=== PATIENT | male | born 1985 | race Caucasian/White ===

== ENCOUNTER 2019-03-11 22:40 | Inpatient (IN) | payer BC ==
[~2019-03-11] VITALS: Ht 195.6 cm; Wt 81.8 kg
[2019-03-11 23:27] LABS: HEMOGLOBIN 13.8 g/dl (13.5-18.0); RED BLOOD COUNT 4.46 M/mm3 (4.20-5.60)
[2019-03-11 23:28] LABS: BASO % 0.3 % (0.0-2.0); EOS # 0.2 (0.0-0.7); EOS % 1.3 % (0-4.0); GRAN # 8.7 (1.4-6.5); GRAN % 68.4 % (42.2-75.2); HEMATOCRIT 39.6 % (42.0-52.0); LYMPH # 2.6 (1.2-3.4); LYMPH % 20.7 % (20.0-51.0); MEAN CELL VOLUME 89 fl (80.0-100.0); MEAN CORPUSCULAR HEMOGLOBIN 31 pg (27.0-31.0); MEAN CORPUSCULAR HGB CONC 35 g/dl (33.0-37.0); MEAN PLATELET VOLUME 9.7 fl (7.4-10.4); MONO # 1.1 (0.1-0.6); MONO % 8.8 % (1.7-9.3); PLATELET COUNT 218 K/mm3 (130-400)
[2019-03-11 23:36] LABS: ALBUMIN 4.5 gm/dL (3.5-5.0); BILIRUBIN,TOTAL 0.7 mg/dL (0.0-1.0); C-REACTIVE PROTEIN 4.8 mg/dL (0.0-0.9); CALCIUM 9.5 mg/dL (8.4-10.2); CREATININE, serum 0.95 (0.66-1.25); TOTAL PROTEIN 8.6 gm/dL (6.4-8.2)
[2019-03-12] VITALS (9 sets, daily range): BP systolic 104–126; BP diastolic 56–77; PULSE 75–86; TEMP 98.1–100
--- NOTE | 2019-03-12 02:30 | NUR ---
Patient arrived to floor via w/c and assist of ED RN. Mom at bedside. Patient c/o pain 9/10 in abdomen, with severe cramping and nausea. Prn pain medication and zofran given. Warm blanket given to place on abdomen for comfort. IVF started in left AC IV. Denies further needs at this time. Will continue to monitor.
--- NOTE | 2019-03-12 03:30 | NUR ---
Patient states, the morphine only helped slightly. Notified Dr. Barron d/t patient requesting more morphine. No orders to change pain medication at this time. Patient and Mom verbalized understanding that 4mg morphine cannot be given more frequently than Q2h. Will continue to monitor.
--- NOTE | 2019-03-12 04:39 | NUR ---
Patient in bed, sleeping. Appears comfortable. Mom at bedside, sleeping. Will continue to monitor.
--- NOTE | 2019-03-12 06:32 | NUR ---
Patient in bed, awake. States pain in abdomen is 8/10. Prn pain medication given per pt request. Denies further needs at this time. Will continue to monitor.
[2019-03-12 09:17] LABS: BASO % 0.4 % (0.0-2.0); EOS # 0.1 (0.0-0.7); EOS % 0.6 % (0-4.0); GRAN # 8.1 (1.4-6.5); GRAN % 71.9 % (42.2-75.2); HEMATOCRIT 37.6 % (42.0-52.0); HEMOGLOBIN 13.1 g/dl (13.5-18.0); LYMPH % 17.8 % (20.0-51.0); MEAN CELL VOLUME 89 fl (80.0-100.0); MEAN CORPUSCULAR HEMOGLOBIN 31 pg (27.0-31.0); MEAN CORPUSCULAR HGB CONC 35 g/dl (33.0-37.0); MEAN PLATELET VOLUME 9.9 fl (7.4-10.4); MONO % 8.9 % (1.7-9.3); PLATELET COUNT 186 K/mm3 (130-400); RED BLOOD COUNT 4.24 M/mm3 (4.20-5.60); REDCELL DISTRIBUTION WIDTH-CV 13.1 % (11.5-14.5)
[2019-03-12 09:23] LABS: CALCIUM 8.6 mg/dL (8.4-10.2); CREATININE, serum 0.76 (0.66-1.25)
--- NOTE | 2019-03-12 09:38 | NUR ---
Initial visit; Patient experiencing pain though thanked Shotgun Shell Loading Machine Operator for looking in on him and offering God's blessings.
--- NOTE | 2019-03-12 09:42 | NUR ---
PT STATED THIS AM THAT PAIN IS NOT WELL CONTROLLED WITH IV PAIN MEDS THAT WE HAVE ON BOARD. PROVIDED PT WITH HEAT PACK. WILL ASK PROVIDER IF ABLE TO TRY A DIFFERENT PAIN MED IF POSSIBLE
--- NOTE | 2019-03-12 10:45 | NUR ---
PT CONDITION WAS DISCUSSES WITH PROVIDER. PROPERTY VALUER ORDERED
--- NOTE | 2019-03-12 11:10 | NUR ---
FOUNDATION DRILL OPERATOR HELPER STARTED, 2 NURSE VARIFICATION DONE. FOUNDATION DRILL OPERATOR HELPER EDUCATION PROVIDED AND SIGNATURES OBTAINED. NO QUESTIONS VOICED AT THIS TIME.
--- NOTE | 2019-03-12 11:26 | NUR ---
Painting Supervisor attended clinical rounds with the team. Patient states he presented to the ER with severe stomach pain. SW met with the patient after rounds. Patient lives alone in [place]. Patient does not have a primary care physician and states he is not interested in setting up primary care at this time. Patient reports when he needs medications he gets them at [facility] in [place] with no difficulty. Patient is independent with ADLS and does not have DME. Patient does not have DPOA-HC, but states everything he has will go to his mom. Patient not interested in setting up DPOA-HC at this time. Patient plans to return home upon discharge. SW to continue to follow as needed.
--- NOTE | 2019-03-12 15:17 | NUR ---
PT STATED THAT PAIN IS NOW TOLERARABLE THEN IT WAS BEFORE. CASE WORK AIDE IS HELPING.
--- NOTE | 2019-03-12 19:35 | NUR ---
Initial shift assessment done- states abd pain, cramping pain 11/07- has CASINO CAGE SUPERVISOR morphine- instructed to use for pain control! states he will-- denies nausea, no SOB, VSS, temp 98.8- SCD.s on, IV fluids 150cc/hr to L/ac IV site, unstarstands he is NPO for bowel rest
[2019-03-13] VITALS (10 sets, daily range): BP systolic 118–127; BP diastolic 63–76; PULSE 75–95; TEMP 99.2–99.9
--- NOTE | 2019-03-13 05:21 | NUR ---
Quiet night- states PATIENT SERVICES TECHNICIAN Morphine is helping with pain control- states Pain is better than earlier in shift- Did void 700cc darkamber/orange urine during the night. IV fluids at 150cc/hr. No stools this shift- highest temp 100.0 at start of shift
[2019-03-13 07:33] LABS: BASO % 0.3 % (0.0-2.0); EOS # 0.1 (0.0-0.7); EOS % 0.8 % (0-4.0); GRAN # 8.5 (1.4-6.5); GRAN % 73.2 % (42.2-75.2); HEMOGLOBIN 12.3 g/dl (13.5-18.0); LYMPH % 16.8 % (20.0-51.0); MEAN CELL VOLUME 90 fl (80.0-100.0); MEAN CORPUSCULAR HEMOGLOBIN 32 pg (27.0-31.0); MEAN CORPUSCULAR HGB CONC 35 g/dl (33.0-37.0); MEAN PLATELET VOLUME 9.8 fl (7.4-10.4); MONO % 8.3 % (1.7-9.3); PLATELET COUNT 171 K/mm3 (130-400); RED BLOOD COUNT 3.91 M/mm3 (4.20-5.60)
[2019-03-13 07:36] LABS: HEMATOCRIT 35.2 % (42.0-52.0)
[2019-03-13 08:04] LABS: CALCIUM 8.5 mg/dL (8.4-10.2); CREATININE, serum 0.75 (0.66-1.25); POTASSIUM 4.1 mmol/L (3.4-5.0)
--- NOTE | 2019-03-13 09:04 | NUR ---
SW met with the patient to discuss a discharge plan. The patient lives alone in [place]. The patient does not use DME and reports independence with ADLs. The patient reports no PCP and receives medications at [facility] if needed with no difficulties. The patient does not have advanced directives in the EMR but SW left at [facility] form for the patient. The patient plans to return home upon discharge with his mom Zehra providing transportation. There are no addtional needs at this time.
--- NOTE | 2019-03-13 19:00 | NUR ---
PT HAD UNEVENTFUL DAY. HAS BEEN ON IV FLUIDS AND ENVIRONMENTAL STUDIES PROGRAM DIRECTOR WITHOUT ANY ISSUES VOICED. PAIN REMAINS TOLERABLE THIS SHIFT WITH ENVIRONMENTAL STUDIES PROGRAM DIRECTOR.
--- NOTE | 2019-03-13 22:24 | NUR ---
Pt resting in bed. Alert and oriented with VSS. Did c/o mild nausea, refused medication. Also refused scheduled stool softener. Has DEBUG TECHNICIAN pump and is working with no issues. Is on contact for Shiga like toxin. Denies other needs at this time. Call light within reach, will continue to monitor
[2019-03-14 00:01] VITALS: BP 115/73; PULSE 79; TEMP 98.9
[2019-03-14 04:11] VITALS: BP 124/74; PULSE 85; TEMP 99.4
[2019-03-14 06:17] LABS: HEMOGLOBIN 11.9 g/dl (13.5-18.0); MEAN CELL VOLUME 90 fl (80.0-100.0); MEAN CORPUSCULAR HEMOGLOBIN 31 pg (27.0-31.0); MEAN CORPUSCULAR HGB CONC 35 g/dl (33.0-37.0); MEAN PLATELET VOLUME 9.7 fl (7.4-10.4); PLATELET COUNT 173 K/mm3 (130-400); RED BLOOD COUNT 3.82 M/mm3 (4.20-5.60)
[2019-03-14 06:27] LABS: HEMATOCRIT 34.2 % (42.0-52.0)
[2019-03-14 06:46] LABS: CALCIUM 8.5 mg/dL (8.4-10.2); CREATININE, serum 0.71 (0.66-1.25); MAGNESIUM 1.8 mg/dL (1.6-2.3); POTASSIUM 3.8 mmol/L (3.4-5.0)
[2019-03-14 06:59] LABS: BAND 5 % (0-10); NEUTROPHILS 61 % (42.0-75.2); PLATELET ESTIMATE NORMAL (NORMAL)
[2019-03-14 07:00] LABS: LYMPHOCYTE 22 % (20.0-51.0)
[2019-03-14 08:02] VITALS: BP 124/75; PULSE 79; TEMP 98.7
[2019-03-14 11:54] VITALS: BP 123/75; PULSE 80; TEMP 99.9
[2019-03-14 17:39] VITALS: BP 119/74; PULSE 79; TEMP 98.3
[2019-03-14 19:22] VITALS: BP 122/70; PULSE 96; TEMP 99.9
--- NOTE | 2019-03-14 19:27 | NUR ---
PT STATED HAD SOME LOOSE STOOLS TODAY ALTHOUGH FEELS BETTER. PAIN PILL GIVEN THIS EVENING.
--- NOTE | 2019-03-14 20:00 | NUR ---
Intial shift assessment done- states Kathy is helping for pain control at this time- abd pain 08/08,, IV fludis of NS at 75cc/hr, states has had 3 loose stools today since 0700 this morning- family visiting with pt
[2019-03-15] VITALS: BP 118/75; PULSE 70; TEMP 99.3
[2019-03-15 03:32] VITALS: BP 109/71; PULSE 75; TEMP 98.2
--- NOTE | 2019-03-15 05:49 | NUR ---
Quiet night- slept fair throughout the night- lele temp of 99.3- did get [place] x1 and some tylenol during the night for abd pain
--- NOTE | 2019-03-15 07:00 | NUR ---
Report received from LUISA Acevedo. PT in bed resting with IVF running, [facility], will continue dillon onitor.
[2019-03-15 07:25] LABS: HEMOGLOBIN 11.7 g/dl (13.5-18.0); MEAN CELL VOLUME 89 fl (80.0-100.0); MEAN CORPUSCULAR HEMOGLOBIN 31 pg (27.0-31.0); MEAN CORPUSCULAR HGB CONC 35 g/dl (33.0-37.0); MEAN PLATELET VOLUME 10.2 fl (7.4-10.4); PLATELET COUNT 183 K/mm3 (130-400); RED BLOOD COUNT 3.76 M/mm3 (4.20-5.60); REDCELL DISTRIBUTION WIDTH-CV 12.8 % (11.5-14.5)
[2019-03-15 07:40] LABS: CALCIUM 8.6 mg/dL (8.4-10.2); CREATININE, serum 0.7 (0.66-1.25); POTASSIUM 3.5 mmol/L (3.4-5.0)
[2019-03-15 07:41] LABS: HEMATOCRIT 33.6 % (42.0-52.0)
[2019-03-15 08:22] LABS: BAND 2 % (0-10); EOSINOPHIL 1 % (0-4); LYMPHOCYTE 33 % (20.0-51.0); NEUTROPHILS 53 % (42.0-75.2); PLATELET ESTIMATE NORMAL (NORMAL)
[2019-03-15] MEDS ORDERED: NORCO 325 MG-51 TAB PO (08:59)
[2019-03-15 09:00] VITALS: BP 121/74; PULSE 71; TEMP 98.6
--- NOTE | 2019-03-15 10:31 | NUR ---
Assessmetn charted and dishcarge teaching completed. Pt resting in bed, pain is 4/10 in abd, cramping pain. States this is the most tolerable that it has been thus far. INT dc'd, tip intact. Pt anticipating discharge, reviewed packet, f/u appoitnment, script and work release. Discussed need to wash hands thoroughly and often after discharge. Deneis needs, called ride and will call when ready to leave. Criteria met.
== END 2019-03-15 11:15 | disposition home or self-care (01) | DRG 372 ==
LOC: COL.ER 22:40 → MEDICAL 03-12 01:30
PROVIDERS: Emergency Medicine; Internal Medicine; Nurse Practitioner Family; ADMIT Student in an Organized Health Care Education/Training Program
DX: A04.4 Other intestinal Escherichia coli infections (principal); K92.1 Melena; Z88.0 Allergy status to penicillin
CPT/HCPCS: 99223-AI; 99232-AI; 99233-AI; 99238; A4216; J0696; J2270; J2405; J7030; Q9967